=== PATIENT | male | born 1960 | race Caucasian/White ===

== ENCOUNTER 2025-07-15 14:40 | Outpatient (AMB) | payer OTHER, SELFPAY ==
--- NOTE | 2025-07-15 14:48 | AM.OFFWIN_ITS ---
Intake Vital Signs 07/15/25 14:52 Height 5 ft 8 in Weight 186 lb BMI 28.3 BP 136/74 Blood Pressure Location Lt brachial Position Sitting Pulse 85 Pulse Source Pulse Oximeter Temp 97.5 F Temp Source Oral Pulse Oximetry (%) 97 Oxygen Delivery Method Room Air Intake Visit Reasons: EP blood thinner medication refill [phone] Intake Note: only has enough eliquis for 2 more Allergies No Known Allergies Allergy (Verified 07/15/25 14:48) Medication List - Last Reconciled 07/15/25 by Tiffany Dunaway NP apixaban (Eliquis) 2.5 mg PO BID 90 days Do you need a note to return to daycare/school/sports/work: No HPI HPI Comments History of Present Illness Details 64 y/o Male patient who presents to the walk in clinic asking for Medication refill. Pt takes Eliquis 2.5 mg BID due to h/o B/L DVT diagnosed 5-6 years ago. Pt's Previous PCP and patient was left without a PCP. He has an appointment with new PCP (Dr. Davis) 11/2025. Pt does not have any refills left and can't wait until Next appointment. [facility] Medical History (Updated 07/15/25 @ 15:19 by Tiffany Dunaway NP) H/O deep venous thrombosis H/O blood clots Review of Systems Const All systems reviewed & are unremarkable except as noted in HPI and below Physical Exam Vital Signs: Last Vital Signs Temp 97.5 F 07/15/25 14:52 Pulse 85 07/15/25 14:52 BP 136/74 07/15/25 14:52 Pulse Ox 97 07/15/25 14:52 Oxygen Delivery Method Room Air 07/15/25 14:52 BMI result Body Mass Index 28.3 Const General: no acute distress Nutritional Appearance: well nourished Orientation/consciousness: patient oriented x3 Resp Effort & Inspection: normal respiratory effort Auscultation: clear to auscultation bilaterally Cardio Heart sounds: S1 normal heart sound present and S2 normal heart sound present Neuro General: patient oriented x3 Assessment & Plan Assessment & Plan (1) H/O deep venous thrombosis: Code(s): Z86.718 - Personal history of other venous thrombosis and embolism Plan: Ordered Eliquis 2.5 mg BID for 90 days. Pt will need to f/u with his New PCP for more refills. Medications: New apixaban (Eliquis) 2.5 mg PO BID 180 tabs 0RF 90 days Z86.718 - Personal history of other venous thrombosis and embolism Coding Level of Care Code New Pt Level 4 (19470) Diagnoses H/O deep venous thrombosis Z86.718 Time Spent (min) 20
[2025-07-15 14:52] VITALS: BP 136/74; PULSE 85; TEMP 36.4; O2SAT 97; BMI 28.3
--- OUTSIDE RECORDS SUMMARY | 2025-07-15 18:30 | XMS_ITS | Clinical Summary ---
Author Organization [facility] Address [address] [place] [address] Care Team Providers Care System Trainer Name Role Phone Gail Steel MD Primary Care Provid er Allergies No known active allergies Medications Medication Sig Dispensed Refills Start Date End Date Status Eliquis 2.5 MG TABS tablet TAKE ONE TABLET BY MOUTH EVERY 12 HOURS 60 tablet 0 11/17/2021 Active Active Problems No known active problems Social History Tobacco Use Types Packs/Day Years Used Date Smoking Tobacco: Never Smokeless Tobacco: Never Alcohol Use Standard Drinks/Week Comments Yes 0 (1 standard drink = 0.6 oz pur e alcohol) Sex and Gender Information Value Date Recorded Sex Assigned at Not on file Gender Identity Not on file Sexual Orientation Not on file Last Filed Vital Signs Vital Sign Reading Time Taken Comments Blood Pressure 147/82 03/17/2021 10:02 AM EDT Pulse 83 03/17/2021 10:02 AM EDT Temperature 36.7 C (98 F) 03/17/2021 10:02 AM EDT Respiratory Rate - - Oxygen Saturation 97% 03/17/2021 10:02 AM EDT Inhaled Oxygen Concentration - - Weight 85.7 kg (189 lb) 03/17/2021 10:02 AM EDT Height 172.7 cm (5' 8 ) 03/17/2021 10:02 AM EDT Body Mass Index 28.74 03/17/2021 10:02 AM EDT Plan of Treatment Health Maintenance Due Date Last Done Comments Hepatitis C Screening 1961 Depression Screening 1973 Preventative Health Evaluation 1979 Colon Cancer Screening (Colonoscopy) 2006 Shingrix-Zoster Vaccine (2 o f 2) 08/31/2018 07/06/2018 COVID-19 Vaccine (2024- 6 season) 2025 01/14/2021, 12/16/2020 Influenza Vaccine (#1) 2025 , 07/05/2019, 06/17/2016 DTap / Tdap / Td (3 - Td or Tdap) 03/10/2031 03/10/2021, 02/14/2012 RSV Adult > 60+ Yrs or (1 - 1-dose 75+ series) 2036 Hepatitis B Vaccines Aged Out No long er eligible based on patient's age to complete this topic Pneumococcal Vaccine Aged Out No long er eligible based on patient's age to complete this topic RSV Ped < 20 months Aged Out No longe r eligible based on patient's age to complete this topic Care Teams System Trainer Relationship Specialty Start Date End Date Gail Steel MD PCP - General Internal Medicine 03/17/21
== END 2025-07-15 15:34 | disposition home or self-care (01) ==
PROVIDERS: Visit Provider Nurse Practitioner Family
DX: Z86.718 Personal history of other venous thrombosis and embolism (principal)

== ENCOUNTER 2025-07-29 13:01 | Outpatient (AMB) | payer OTHER, SELFPAY ==
--- NOTE | 2025-07-29 13:02 | MHC.PC.OV ---
Vital Signs 07/29/25 13:04 Height 5 ft 7.32 in Weight 186 lb BMI 28.9 BP 152/81 H Blood Pressure Location Rt brachial Position Sitting Respiration 14 Pulse 90 Pulse Source Pulse Oximeter Temp 98.3 F Temp Source Temporal Artery Scan Pulse Oximetry (%) 98 Oxygen Delivery Method Room Air Intake Visit Reasons: Annual physical-New Chili Pepper Grinder Required: No Accompanied by: Self / Same As Patient Allergies No Known Allergies Allergy (Verified 07/29/25 13:31) Medication List - Last Reconciled 07/29/25 by Alee Mayer PA-C apixaban (Eliquis) 2.5 mg PO BID 90 days Tobacco use date assessed: 07/29/25 Dental Screening Dental Screen Date: 07/29/25 Did you have a dental visit in the last 12 months?: Yes Did you have a dental problem in the last 6 months where you did not have access to dental care?: No Was dental information given to patient?: Patient has dentist HPI Annual physical-New HPI Details The patient is a 64-year-old male presenting for a new patient visit for a medication refill. Although patient lives in [place] and would like to be established at the [place] primary care clinic for accessibility going forward. He is only here for medication refill for his Eliquis that is very important. He has a history of hyperlipidemia and recurrent deep vein thrombosis (DVT) in both legs, for which he takes Eliquis 2.5 mg twice daily. 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 Surgical history includes a tonsillectomy. For preventative screenings, his last Cologuard was in 2023 and was negative. Family history is notable for skin cancer in his father, diabetes in both parents, breast cancer in his maternal grandmother, and leukemia in his maternal grandfather. Social History - Occupation: The patient is a flatbed truck driver. - Alcohol Use: Reports occasional use, consuming two microbrews on Fridays and two on Saturdays. - Substance Use: Denies tobacco or illicit drug use. - Marital Status and Relationships: He is sexually active with his . [facility] Medical History (Updated 07/29/25 @ 16:39 by Alee Mayer PA-C) Elevated blood pressure reading Chronic anticoagulation H/O deep venous thrombosis H/O blood clots Family History Father Obese Diabetes Alzheimer's dementia Mother Alzheimer's dementia Obese Diabetes Social History Housing: House Alcohol intake: current Alcohol intake frequency: holidays/special occasions only Patient Tobacco Use Status: Never used Tobacco service: No Current occupational status: employed Cognitive needs: No Hearing needs: No Vision needs: Yes (rx glasses) Questionnaire PHQ-9 Over the last 2 weeks, how often have you been bothered by any of the following problems? 1. Little interest or pleasure in doing things: not at all 2. Feeling down, depressed, or hopeless: not at all 3. Trouble falling or staying asleep, or sleeping too much: not at all 4. Feeling tired or having little energy: not at all 5. Poor appetite or overeating: not at all 6. Feeling bad about yourself - or that you are a failure or have let yourself or your family down: not at all 7. Trouble concentrating on things, such as reading the newspaper or watching television: not at all 8. Moving or speaking so slowly that other people could have noticed. Or the opposite - being so fidgety or restless that you have been moving around a lot more than usual: not at all 9. Thoughts that you would be better off or of hurting yourself in some way: not at all Total score: 0 Depression Screening Interpretation: Negative Depression Screening Done: Yes [id number] - PHQ-9 Billing: Yes Source: Developed by Drs. Donnell Sparks, Diandra Ramirez, Aflonso Sanchez and colleagues, with an educational susan from [employer]. Thrive Questionnaire Date Thrive assessed: 07/29/25 I am a: Patient What is your living situation today?: I have a steady place to live Within the past 12 months, did the food you bought not last and you didn't have the money to get more?: Never true Within the past 12 months, did you worry whether your food would run out before you got money to buy more?: Never true Do you have trouble paying for medicines?: No Do you have trouble getting transportation to medical appointments?: No Do you have trouble paying your heating and electricity bill?: No Do you have trouble taking care of your child, family member or friend?: No Do you have trouble with day-to-day activities such as bathing, preparing meals, shopping, managing finances, etc.?: No Are you currently unemployed and looking for a job?: No Are you interested in more education?: No Please select the resources that you would like help with: None THRIVE Score: 0 AUDIT C Alcohol Use Questionnaire (AUDIT-C) 1. How often do you have a drink containing alcohol?: Monthly or less 2. How many drinks containing alcohol do you have on a typical day when you are drinking?: 1 or 2 3. How often do you have six or more drinks on one occasion?: Never Total Score: 1 Score Reviewed/Action Taken: No CAMELIA-7 AMB Questionnaire CAMELIA-7 Date CAMELIA - 7 assessed: 07/29/25 Feeling nervous, anxious, or on edge: 0 = Not at all Not being able to stop or control worryin = Not at all Worrying too much about different things: 0 = Not at all Trouble relaxin = Not at all Being so restless that it is hard to sit still: 0 = Not at all Becoming easily annoyed or irritable: 0 = Not at all Feeling afraid as if something awful might happen: 0 = Not at all Total CAMELIA-7 score (0-4 normal; 5-9 mild; 10-14 moderate; 15-21 severe): 0 Source: Developed by Drs. Donnell Sparks, Diandra Ramirez, Alfonso Sanchez and colleagues, with an educational susan from [employer]. CAMELIA-7 Assessment Billing CAMELIA-7 Assessment Tool: CAMELIA-7 Assessment 86764 Review of Systems Const Details: - General: Reports feeling good. - Psychiatric: Denies thoughts of self-harm. All systems reviewed & are unremarkable except as noted in HPI and below Physical exam (Primary Care) Vital Signs: Last Vital Signs Temp 98.3 F 07/29/25 13:04 Pulse 90 07/29/25 13:04 Resp 14 07/29/25 13:04 BP 152/81 H 07/29/25 13:04 Pulse Ox 98 07/29/25 13:04 Oxygen Delivery Method Room Air 07/29/25 13:04 Care Plan Goal for BP management: <140/90 patient will monitor his blood pressure over the next month and return with blood pressure diary BMI result Body Mass Index 28.9 BMI Assessment/Plan discussion: High BMI High, discussed plan: lifestyle, weight reduction, dietary, physical activity, alcohol moderation and other Tobacco/Smoking Status: Tobacco use Status Tobacco use date assessed 07/29/25 07/29/25 13:13 Patient Tobacco Use Status Never used Tobacco 07/29/25 13:13 PHQ-9: PHQ-9 Score PHQ-9: Total score 0 07/29/25 13:32 Depression Screening Interpretation: Negative Thrive Assessment: Date of Thrive Assessment Date Thrive assessed 07/29/25 07/29/25 13:13 Const Other: Appearance: Alert. Oriented X3. No acute distress. Head: Normal external exam. Normocephalic. Atraumatic. Eyes: Pupils are equal, round, and reactive to light. Extraocular movements intact. Conjunctiva and sclera normal. Eyelids normal. Throat: Pharynx normal. Uvula midline. Moist mucous membranes. Neck: Normal inspection. Neck supple. Full range of motion. Cardiovascular: Normal heart rate and rhythm. Respiratory: No respiratory distress. Painless inspiration. Back: Full range of motion noted. Skin: Skin warm and dry. Normal skin color. Normal skin turgor. No rashes/lesions/lacerations noted. Extremities: Extremities exhibit normal range of motion. Partial amputation of the 4th and 5th toes on one foot due to previous gangrene. Results Reviewed Results Reviewed: - Cologuard: Negative in 2023. Coding Level of Care Code New Pt Level 4 (17747) Complex EM visit Add On G2211 Diagnoses Chronic anticoagulation Z79.01 Elevated blood pressure reading R03.0 Additional Codes CAMELIA-7 Assessment Billing - CAMELIA-7 Assessment Tool: CAMELIA-7 Assessment 65377 ([id number]) PHQ-9 - 39439 - PHQ-9 Billing: Yes ([id number]) Assessment & Plan Assessment & Plan (1) Chronic anticoagulation: Code(s): Z79.01 - [facility] (current) use of anticoagulants Category: Medical Plan: To manage his history of recurrent DVT, the patient's Eliquis 2.5 mg twice daily was refilled. A 90-day supply with three refills was prescribed and sent to the [facility] in [place]. (2) Elevated blood pressure reading: Code(s): R03.0 - Elevated blood-pressure reading, without diagnosis of hypertension Category: Medical Plan: The patient had an elevated blood pressure reading during the visit, though he reports it is normally around 135/75 mmHg and the current elevation may be due to nervousness. No antihypertensive medication will be started today. He was instructed to monitor his blood pressure and bring a log to his next appointment with his new provider. Plan Plan Patient was informed and verbally consented to the use of an ambient scribe for clinic note documentation during this visit. 1. Long-Term (Current) Use Of Anticoagulants To manage his history of recurrent DVT, the patient's Eliquis 2.5 mg twice daily was refilled. A 90-day supply with three refills was prescribed and sent to the [facility] pharmacy in [place]. 2. Elevated Blood Pressure Reading, Without Diagnosis Of Hypertension The patient had an elevated blood pressure reading during the visit, though he reports it is normally around 135/75 mmHg and the current elevation may be due to nervousness. No antihypertensive medication will be started today. He was instructed to monitor his blood pressure and bring a log to his next appointment with his new provider. 3. Encounter For Administrative Purposes The patient will establish care at the [facility] due to its closer proximity to his home. A message will be sent to the [place] office to facilitate this transition and explain that this visit was a bridge appointment for a medication refill. The patient was instructed to contact the [place] office to schedule his appointment. I informed the patient that this visit was intended as a bridge appointment to provide a necessary refill of his Eliquis before he establishes care at our [place] location, which is closer to his home. I provided a 90-day prescription with three refills. Regarding his elevated blood pressure reading, I explained that we would not start medication today given his report of normally stable pressures and the possibility of situational anxiety, but I advised him to monitor it at home and bring a log to his new provider. I advised him to call the [place] office to schedule his follow-up appointment, and that I would send a message to that clinic to ensure a smooth transition of care. Medications: Refilled apixaban (Eliquis) 2.5 mg PO BID 180 tabs 3RF 90 days Z86.718 - Personal history of other venous thrombosis and embolism Patient Instructions: - Your prescription for Eliquis 2.5mg has been sent to the [facility] on [address] in [place]. You will receive a 90-day supply with three refills. - Please monitor your blood pressure at home and bring a log of your readings to your next appointment. - You will need to call the [facility] clinic in [place] to schedule an appointment to establish care with a new primary care provider.
[2025-07-29 13:04] VITALS: BP 152/81; PULSE 90; RESP 14; TEMP 36.8; O2SAT 98; BMI 28.9
--- OUTSIDE RECORDS SUMMARY | 2025-07-29 15:53 | XMS_ITS | Clinical Summary ---
Author Organization [facility] Address [address] [place] [address] Care Team Providers Care Fine Arts Packer Name Role Phone Gail Steel MD Primary [...] age to complete this topic Care Teams Fine Arts Packer Relationship Specialty Start Date End Date Gail Steel MD PCP - General Internal Medicine 03/17/21
== END 2025-07-29 13:49 | disposition home or self-care (01) ==
LOC: HO.HMCSH 13:02
PROVIDERS: Visit Provider Physician Assistant Medical
DX: Z79.01 Long term (current) use of anticoagulants (principal); R03.0 Elevated blood-pressure reading, without diagnosis of hypertension

== ENCOUNTER → 2025-07-29 13:01 | Outpatient (BNVA) | payer OTHER, SELFPAY | PROVIDERS: Visit Provider Physician Assistant Medical | DX: R03.0 Elevated blood-pressure reading, without diagnosis of hypertension (principal); E78.5 Hyperlipidemia, unspecified; Z79.01 Long term (current) use of anticoagulants; Z86.718 Personal history of other venous thrombosis and embolism | CPT/HCPCS: 96127 ==